=== PATIENT | female | born 1970 | race Caucasian/White ===

== ENCOUNTER 2016-08-28 16:17 | Emergency (ER) | payer OTHER ==
[~2016-08-28] VITALS: Wt 119.3 kg
[~2016-08-28 16:17] MED LIST: 'TENORMIN50 MG PO; ADVAIR 250/501 EA INH; ADVAIR 250/501 EA PO; ADVAIR 500/501 E1 INH; ALBUTEROL0.09 MG/A2 PO; ALDACTONE25 M1 PO; AUGMENTIN 875 M1 TAB PO; AUGMENTIN 875-875 MG PO; BACTRIM DS 8001 TA1 PO; CLARITIN-D 24 H1 TER PO; CLARITIN10 MG PO; FLUTICASON0.05 MG/AC NAS; KEFLEX500 M1 PO; KEFLEX500 MG PO; LASIX40 MG PO; LIPITOR10 MG PO; LISINOPRIL40 MG PO; METFORMIN1000 MG PO; METFORMIN500 MG PO; NORVASC5 MG PO; OMNICEF300 MG PO; PROVENTIL0.09 MG/AC IH; SINGULAIR10 M1 PO; SINGULAIR10 MG; SINGULAIR10 MG PO; THEOPHYLLINE E; THEOPHYLLINE E100 M1 PO; THEOPHYLLINE PO; TYLENOL500 MG; ULTRAM50 MG PO; VICODIN 5/500 505 MG PO; Vicodin 5/500 505 MG PO; ZOLOFT50 MG PO; ZYVOX600 MG PO
[2016-08-28] MEDS ORDERED: VIBRAMYCIN100 MG PO (17:17)
== END 2016-08-28 17:26 | disposition home or self-care (01) ==
LOC: ED 16:17
DX: J45.20 Mild intermittent asthma, uncomplicated (principal); Z88.6 Allergy status to analgesic agent; Z88.1 Allergy status to other antibiotic agents; Z88.7 Allergy status to serum and vaccine; Z79.899 Other long term (current) drug therapy

== ENCOUNTER 2016-12-15 22:00 | Emergency (ER) | payer OTHER ==
[~2016-12-15] VITALS: Ht 167.6 cm; Wt 121.1 kg
[~2016-12-15 22:00] MED LIST changes: +VIBRAMYCIN100 MG PO
[2016-12-15] MEDS ORDERED: ALBUTEROL2.5 MG/0.5 INH (22:15)
[2016-12-15] MEDS ORDERED: VENTOLIN H0.09 MG/AC INH (22:15)
[2016-12-15] MEDS ORDERED: QUESTRAN POWDE378 GM PO (22:16)
[2016-12-15] MEDS ORDERED: DUONEB 3 MG/3 ML3 M1 INH (22:17)
[2016-12-15] MEDS ORDERED: NUCALA100 MG IM (22:18)
[2016-12-15] MEDS ORDERED: TOPROL XL50 M1 PO (22:19)
[2016-12-15] MEDS ORDERED: KLOR-CON M2020 ME1 PO (22:20)
[2016-12-15] MEDS ORDERED: CEFADROXIL500 M1 PO (22:28)
== END 2016-12-15 22:33 | disposition home or self-care (01) ==
LOC: ED 22:00
DX: L03.116 Cellulitis of left lower limb (principal); Z90.49 Acquired absence of other specified parts of digestive tract; Z88.6 Allergy status to analgesic agent; Z88.1 Allergy status to other antibiotic agents; Z88.7 Allergy status to serum and vaccine; Z88.8 Allergy status to other drugs, medicaments and biological substances; Z79.899 Other long term (current) drug therapy

== ENCOUNTER → 2017-02-04 | Outpatient (CLI) | payer OTHER ==
[~2017-02-04] MED LIST changes: +ALBUTEROL2.5 MG/0.5 INH; +CEFADROXIL500 M1 PO; +DUONEB 3 MG/3 ML3 M1 INH; +KLOR-CON M2020 ME1 PO; +NUCALA100 MG IM; +QUESTRAN POWDE378 GM PO; +TOPROL XL50 M1 PO; +VENTOLIN H0.09 MG/AC INH
== END | disposition home or self-care (01) ==
LOC: RESCLI 03:15
DX: E11.9 Type 2 diabetes mellitus without complications (principal); F41.9 Anxiety disorder, unspecified; F32.9 Major depressive disorder, single episode, unspecified; J45.30 Mild persistent asthma, uncomplicated; I10 Essential (primary) hypertension; K76.89 Other specified diseases of liver; K80.50 Calculus of bile duct without cholangitis or cholecystitis without obstruction; R60.0 Localized edema; K75.81 Nonalcoholic steatohepatitis (NASH); G43.009 Migraine without aura, not intractable, without status migrainosus

== ENCOUNTER 2017-02-14 20:53 | Emergency (ER) | payer OTHER ==
[~2017-02-14] VITALS: Ht 167.6 cm; Wt 117.0 kg
[2017-02-14] MEDS ORDERED: PREDNISONE10 MG PO (21:16)
[2017-02-14] MEDS ORDERED: AUGMENTIN 875875 MG PO (21:16)
== END 2017-02-14 22:06 | disposition home or self-care (01) ==
LOC: ED 20:53
DX: J01.10 Acute frontal sinusitis, unspecified (principal); I10 Essential (primary) hypertension; E11.9 Type 2 diabetes mellitus without complications; G43.909 Migraine, unspecified, not intractable, without status migrainosus; J45.909 Unspecified asthma, uncomplicated; K21.9 Gastro-esophageal reflux disease without esophagitis; Z88.6 Allergy status to analgesic agent; Z88.1 Allergy status to other antibiotic agents; Z88.7 Allergy status to serum and vaccine; Z79.899 Other long term (current) drug therapy

== ENCOUNTER → 2017-03-19 | Outpatient (CLI) | payer OTHER ==
[~2017-03-19] MED LIST changes: +AUGMENTIN 875875 MG PO; +PREDNISONE10 MG PO
== END | disposition home or self-care (01) ==
LOC: RESCLI 03:31
DX: K75.81 Nonalcoholic steatohepatitis (NASH) (principal); E11.9 Type 2 diabetes mellitus without complications; F32.9 Major depressive disorder, single episode, unspecified; K80.50 Calculus of bile duct without cholangitis or cholecystitis without obstruction; G43.009 Migraine without aura, not intractable, without status migrainosus; J45.30 Mild persistent asthma, uncomplicated; F41.9 Anxiety disorder, unspecified; I10 Essential (primary) hypertension; K76.89 Other specified diseases of liver; E78.2 Mixed hyperlipidemia

== ENCOUNTER 2017-05-09 18:31 | Emergency (ER) | payer MEDICAID ==
[~2017-05-09] VITALS: Wt 117.9 kg
[2017-05-09] MEDS ORDERED: KEFLEX500 M1 PO (20:02)
[2017-05-09] MEDS ORDERED: NORCO 5-325 TA1 EACH PO (20:02)
== END 2017-05-09 19:48 | disposition home or self-care (01) ==
LOC: ED 18:31
DX: S92.402A Displaced unspecified fracture of left great toe, initial encounter for closed fracture (principal); R03.0 Elevated blood-pressure reading, without diagnosis of hypertension; Z88.6 Allergy status to analgesic agent; Z88.8 Allergy status to other drugs, medicaments and biological substances; Z88.1 Allergy status to other antibiotic agents; Z79.84 Long term (current) use of oral hypoglycemic drugs; Z79.899 Other long term (current) drug therapy; W20.8XXA Other cause of strike by thrown, projected or falling object, initial encounter; Y93.89 Activity, other specified; Y92.89 Other specified places as the place of occurrence of the external cause; Y99.8 Other external cause status

== ENCOUNTER → 2017-05-27 | Outpatient (CLI) | payer MEDICAID ==
[~2017-05-27] MED LIST changes: +NORCO 5-325 TA1 EACH PO
[2017-05-27 11:30] LABS: BASO # 0.1 10*3/uL (0.0-0.1); BASO % 0.8 % (0.0-1.0); EOS # 0.2 10*3/uL (0.0-0.4); EOS % 1.9 % (1.0-4.0); HEMATOCRIT 41.2 % (37.0-47.0); LYMPH # 3.3 10*3/uL (1.3-4.4); MEAN CELL VOLUME 91.8 fl (81.0-99.0); MEAN CORPUSCULAR HGB 31.2 pg (27.0-31.0); MEAN PLATELET VOLUME 9.4 fl (9.6-12.3); MONO # 0.5 10*3/uL (0.1-1.0); MONO % 4.3 % (3.0-9.0); NEUT # 7.6 10*3/uL (2.3-7.9); NEUT % 64.4 % (47.0-73.0); PLATELET COUNT AUTOMATED 331 10*3/uL (130-400); RED BLOOD COUNT 4.49 10*6/uL (4.10-5.10); RED CELL DISTRI WIDTH 12.1 % (0-14.5); WHITE BLOOD COUNT 11.7 10*3/uL (4.8-10.8)
[2017-05-27 11:45] LABS: CHLORIDE 106 mmol/L (98-107); POTASSIUM 3.9 mmol/L (3.5-5.1); SODIUM 140 mmol/L (136-145)
[2017-05-27 11:50] LABS: BUN 17 mg/dl (7-24); CREATININE 0.77 mg/dL (0.55-1.02); PHOSPHOROUS 1.9 mg/dL (2.5-4.9)
== END | disposition home or self-care (01) ==
LOC: LAB 03:37 → RESCLI 03:37
PROVIDERS: Internal Medicine
DX: J45.30 Mild persistent asthma, uncomplicated (principal); E83.42 Hypomagnesemia

== ENCOUNTER 2017-07-08 09:02 | Emergency (ER) | payer OTHER ==
[~2017-07-08] VITALS: Ht 167.6 cm; Wt 117.9 kg
[2017-07-08] MEDS ORDERED: DELTASONE20 M1 PO (10:21)
[2017-07-08] MEDS ORDERED: AMOXICILLIN500 M2 PO (10:21)
== END 2017-07-08 11:01 | disposition home or self-care (01) ==
LOC: ED 09:02
DX: J06.9 Acute upper respiratory infection, unspecified (principal); J45.909 Unspecified asthma, uncomplicated; Z88.6 Allergy status to analgesic agent; Z88.1 Allergy status to other antibiotic agents; Z88.7 Allergy status to serum and vaccine; Z79.899 Other long term (current) drug therapy

== ENCOUNTER 2017-07-16 10:13 | Inpatient (IN) | payer OTHER ==
[~2017-07-16] VITALS: Ht 167.6 cm; Wt 117.5 kg
[~2017-07-16 10:13] MED LIST changes: +AMOXICILLIN500 M2 PO; +DELTASONE20 M1 PO
[2017-07-16 10:58] VITALS: BP 130/78
[2017-07-16 11:19] LABS: HEMATOCRIT 45.3 % (37.0-47.0); HEMOGLOBIN 15.3 g/dl (12.0-16.0); MEAN CELL VOLUME 89.5 fl (81.0-99.0); MEAN CORPUSCULAR HGB 30.2 pg (27.0-31.0); MEAN CORPUSCULAR HGB CONC 33.8 g/dl (33.0-37.0); PLATELET COUNT AUTOMATED 334 10*3/uL (130-400); RED BLOOD COUNT 5.06 10*6/uL (4.10-5.10); RED CELL DISTRI WIDTH 12.7 % (0-14.5); WHITE BLOOD COUNT 30.3 10*3/uL (4.8-10.8)
[2017-07-16 11:36] LABS: ALBUMIN 3.7 gm/dl (3.1-4.5); ALKALINE PHOSPHATASE 72 U/L (45-117); BUN 22 mg/dl (7-24); CHLORIDE 111 mmol/L (98-107); CREATININE 0.89 mg/dL (0.55-1.02); LIPASE 117 U/L (73-393); POTASSIUM 3.9 mmol/L (3.5-5.1); SGOT/AST 14 IU/L (3-35); SGPT/ALT 29 U/L (12-78); SODIUM 141 mmol/L (136-145); TOTAL CELLS COUNTED 100 #CELLS; TOTAL PROTEIN 7.7 gm/dL (6.4-8.2)
[2017-07-16 11:37] LABS: PLATELET SUFFICIENCY NORMAL (NORMAL)
[2017-07-16 12:38] VITALS: BP 114/70
[2017-07-16 12:38] LABS: BILIRUBIN NEGATIVE (NEGATIVE); BLOOD NEGATIVE (NEGATIVE); CLARITY SL CLOUDY (CLEAR); COLOR YELLOW (YELLOW); GLUCOSE NEGATIVE (NEGATIVE); KETONE NEGATIVE (NEGATIVE); LEUKO ESTERASE NEGATIVE (NEGATIVE); NITRITE NEGATIVE (NEGATIVE); PH 5.5 (5.0-9.0); SPECIFIC GRAVITY 1.015 (1.005-1.030); UROBILINOGEN 0.2 E.U./dl (0.2-1.0)
[2017-07-16 13:00] LABS: BACTERIA 1+
[2017-07-16] MEDS ORDERED: LEVAQUIN750 M1 PO (14:27)
[2017-07-16 14:48] VITALS: BP 121/84
[2017-07-16 14:55] VITALS: BP 120/84
[2017-07-16] MEDS ORDERED: LIDEX 0.05% CRE15 GM T (15:51)
[2017-07-16 16:00] VITALS: BP 118/72
[2017-07-16] MEDS ORDERED: NUCALA100 MG SQ (16:04)
[2017-07-16 20:00] VITALS: BP 107/61
[2017-07-17] VITALS: BP 115/67
[2017-07-17 06:39] LABS: BASO # 0.1 10*3/uL (0.0-0.1); BASO % 0.4 % (0.0-1.0); EOS # 1.1 10*3/uL (0.0-0.4); EOS % 9.5 % (1.0-4.0); LYMPH # 2.8 10*3/uL (1.3-4.4); LYMPH % 25.3 % (27.0-41.0); MEAN CORPUSCULAR HGB 29.9 pg (27.0-31.0); MEAN CORPUSCULAR HGB CONC 32.5 g/dl (33.0-37.0); MEAN PLATELET VOLUME 9.2 fl (9.6-12.3); MONO # 0.8 10*3/uL (0.1-1.0); MONO % 6.9 % (3.0-9.0); NEUT # 6.3 10*3/uL (2.3-7.9); NEUT % 56.4 % (47.0-73.0); RED BLOOD COUNT 4.12 10*6/uL (4.10-5.10); WHITE BLOOD COUNT 11.2 10*3/uL (4.8-10.8)
[2017-07-17 06:42] LABS: HEMATOCRIT 37.9 % (37.0-47.0); HEMOGLOBIN 12.3 g/dl (12.0-16.0); PLATELET COUNT AUTOMATED 216 10*3/uL (130-400)
[2017-07-17 06:57] LABS: ALBUMIN 2.9 gm/dl (3.1-4.5); BUN 14 mg/dl (7-24); CHLORIDE 111 mmol/L (98-107); FREE T4 0.99 ng/dl (0.76-1.46); POTASSIUM 3.3 mmol/L (3.5-5.1); SODIUM 141 mmol/L (136-145)
[2017-07-17 06:58] LABS: ACT PARTIAL THROMBO TIME 22.7 SECONDS (20.8-31.5)
[2017-07-17 07:07] LABS: ALKALINE PHOSPHATASE 57 U/L (45-117); CHOLESTEROL 139 mg/dL (<200); CREATININE 0.67 mg/dL (0.55-1.02); HDL CHOLESTEROL 35 mg/dl (40-60); LDL CHOLESTEROL 79 mg/dL (9-159); PHOSPHOROUS 2.5 mg/dL (2.5-4.9); SGOT/AST 12 IU/L (3-35); SGPT/ALT 23 U/L (12-78); THYROID STIM HORMONE (HS) 0.989 uIU/ml (0.358-4.75); TOTAL PROTEIN 6.2 gm/dL (6.4-8.2); TRIGLYCERIDES 127 mg/dl (<150); VLDL CHOLESTEROL 25 mg/dL (6-40)
[2017-07-17 08:00] VITALS: BP 110/64
[2017-07-17 08:34] LABS: VITAMIN D, 25-HYDROXY 12.3 ng/mL (30-100)
[2017-07-17 12:00] VITALS: BP 114/76
[2017-07-17 16:00] VITALS: BP 116/56
[2017-07-17 20:04] VITALS: BP 116/561
[2017-07-17 23:57] VITALS: BP 106/62
[2017-07-18 05:49] LABS: BASO % 0.5 % (0.0-1.0); EOS # 0.7 10*3/uL (0.0-0.4); EOS % 9.5 % (1.0-4.0); HEMATOCRIT 34.9 % (37.0-47.0); HEMOGLOBIN 11.3 g/dl (12.0-16.0); LYMPH # 1.9 10*3/uL (1.3-4.4); LYMPH % 25.6 % (27.0-41.0); MEAN CELL VOLUME 93.3 fl (81.0-99.0); MEAN CORPUSCULAR HGB 30.2 pg (27.0-31.0); MEAN CORPUSCULAR HGB CONC 32.4 g/dl (33.0-37.0); MEAN PLATELET VOLUME 9.4 fl (9.6-12.3); MONO # 0.6 10*3/uL (0.1-1.0); MONO % 7.5 % (3.0-9.0); NEUT # 4.1 10*3/uL (2.3-7.9); NEUT % 56.1 % (47.0-73.0); PLATELET COUNT AUTOMATED 171 10*3/uL (130-400); RED BLOOD COUNT 3.74 10*6/uL (4.10-5.10); RED CELL DISTRI WIDTH 12.8 % (0-14.5); WHITE BLOOD COUNT 7.4 10*3/uL (4.8-10.8)
[2017-07-18 06:04] LABS: ALBUMIN 2.7 gm/dl (3.1-4.5); ALKALINE PHOSPHATASE 50 U/L (45-117); BUN 6 mg/dl (7-24); CHLORIDE 113 mmol/L (98-107); CREATININE 0.57 mg/dL (0.55-1.02); POTASSIUM 3.7 mmol/L (3.5-5.1); SGOT/AST 12 IU/L (3-35); SGPT/ALT 24 U/L (12-78); SODIUM 145 mmol/L (136-145); TOTAL PROTEIN 5.6 gm/dL (6.4-8.2)
[2017-07-18 08:00] VITALS: BP 118/74
[2017-07-18] MEDS ORDERED: ZONISAMIDE100 MG PO (11:06)
[2017-07-18] MEDS ORDERED: ZOLOFT50 MG PO (11:18)
[2017-07-18] MEDS ORDERED: IMITREX100 MG PO (11:25)
[2017-07-18 12:00] VITALS: BP 116/70
[2017-07-18 14:00] VITALS: BP 116/70
[2017-07-18 16:00] VITALS: BP 143/85
[2017-07-18 20:00] VITALS: BP 139/75
[2017-07-19] VITALS: BP 131/70
[2017-07-19 06:17] LABS: BASO % 0.4 % (0.0-1.0); EOS # 0.5 10*3/uL (0.0-0.4); EOS % 6.4 % (1.0-4.0); HEMATOCRIT 36.2 % (37.0-47.0); HEMOGLOBIN 11.9 g/dl (12.0-16.0); LYMPH # 1.3 10*3/uL (1.3-4.4); MEAN CORPUSCULAR HGB 29.9 pg (27.0-31.0); MEAN CORPUSCULAR HGB CONC 32.9 g/dl (33.0-37.0); MEAN PLATELET VOLUME 9.3 fl (9.6-12.3); MONO # 0.6 10*3/uL (0.1-1.0); MONO % 7.5 % (3.0-9.0); NEUT # 5.9 10*3/uL (2.3-7.9); NEUT % 69.9 % (47.0-73.0); PLATELET COUNT AUTOMATED 182 10*3/uL (130-400); RED BLOOD COUNT 3.98 10*6/uL (4.10-5.10); RED CELL DISTRI WIDTH 12.7 % (0-14.5); WHITE BLOOD COUNT 8.4 10*3/uL (4.8-10.8)
[2017-07-19 06:30] LABS: ALBUMIN 2.9 gm/dl (3.1-4.5); ALKALINE PHOSPHATASE 55 U/L (45-117); BUN 5 mg/dl (7-24); CHLORIDE 114 mmol/L (98-107); CREATININE 0.62 mg/dL (0.55-1.02); POTASSIUM 3.1 mmol/L (3.5-5.1); SGOT/AST 15 IU/L (3-35); SGPT/ALT 25 U/L (12-78); SODIUM 146 mmol/L (136-145); TOTAL PROTEIN 5.8 gm/dL (6.4-8.2)
[2017-07-19 08:00] VITALS: BP 140/80
[2017-07-19 12:04] VITALS: BP 107/55
[2017-07-19 16:00] VITALS: BP 135/75
[2017-07-19 20:00] VITALS: BP 137/65
[2017-07-20] VITALS: BP 124/53
[2017-07-20 06:55] LABS: BASO % 0.5 % (0.0-1.0); EOS # 0.5 10*3/uL (0.0-0.4); EOS % 7.6 % (1.0-4.0); HEMATOCRIT 35.9 % (37.0-47.0); HEMOGLOBIN 11.7 g/dl (12.0-16.0); LYMPH # 1.5 10*3/uL (1.3-4.4); LYMPH % 23.5 % (27.0-41.0); MEAN CELL VOLUME 92.3 fl (81.0-99.0); MEAN CORPUSCULAR HGB 30.1 pg (27.0-31.0); MEAN CORPUSCULAR HGB CONC 32.6 g/dl (33.0-37.0); MEAN PLATELET VOLUME 9.5 fl (9.6-12.3); MONO # 0.5 10*3/uL (0.1-1.0); MONO % 7.5 % (3.0-9.0); NEUT # 3.7 10*3/uL (2.3-7.9); NEUT % 60.1 % (47.0-73.0); PLATELET COUNT AUTOMATED 170 10*3/uL (130-400); RED BLOOD COUNT 3.89 10*6/uL (4.10-5.10); RED CELL DISTRI WIDTH 13.1 % (0-14.5); WHITE BLOOD COUNT 6.2 10*3/uL (4.8-10.8)
[2017-07-20 07:34] LABS: CHLORIDE 110 mmol/L (98-107); POTASSIUM 2.9 mmol/L (3.5-5.1); SODIUM 144 mmol/L (136-145)
[2017-07-20 08:00] VITALS: BP 150/86
[2017-07-20 08:01] LABS: ALBUMIN 2.9 gm/dl (3.1-4.5); ALKALINE PHOSPHATASE 59 U/L (45-117); BUN 6 mg/dl (7-24); CREATININE 0.71 mg/dL (0.55-1.02); SGOT/AST 21 IU/L (3-35); SGPT/ALT 30 U/L (12-78); TOTAL PROTEIN 6.1 gm/dL (6.4-8.2)
[2017-07-20 12:00] VITALS: BP 142/75
[2017-07-20] MEDS ORDERED: PHENERGAN25 M3 PO (13:03)
[2017-07-20] MEDS ORDERED: METRONIDAZOLE500 M1 PO (13:03)
== END 2017-07-20 14:21 | disposition home or self-care (01) | DRG 872 ==
LOC: ED 10:13 → 4E 13:56 → EDHOLD 13:56 → 4E 14:06
PROVIDERS: Family Medicine; Internal Medicine; Nurse Practitioner Family
DX: A41.9 Sepsis, unspecified organism (principal); E11.8 Type 2 diabetes mellitus with unspecified complications; E44.0 Moderate protein-calorie malnutrition; K76.0 Fatty (change of) liver, not elsewhere classified; E66.01 Morbid (severe) obesity due to excess calories; Z68.41 Body mass index [BMI] 40.0-44.9, adult; E87.6 Hypokalemia; K21.9 Gastro-esophageal reflux disease without esophagitis; F41.9 Anxiety disorder, unspecified; A08.4 Viral intestinal infection, unspecified; F32.9 Major depressive disorder, single episode, unspecified; J45.909 Unspecified asthma, uncomplicated; G43.809 Other migraine, not intractable, without status migrainosus; Z90.13 Acquired absence of bilateral breasts and nipples; Z88.7 Allergy status to serum and vaccine; Z88.4 Allergy status to anesthetic agent; Z88.5 Allergy status to narcotic agent; Z88.1 Allergy status to other antibiotic agents; Z90.49 Acquired absence of other specified parts of digestive tract; Z82.49 Family history of ischemic heart disease and other diseases of the circulatory system; Z79.899 Other long term (current) drug therapy; Z79.4 Long term (current) use of insulin

== ENCOUNTER → 2017-08-18 | Outpatient (CLI) | payer OTHER ==
[~2017-08-18] MED LIST changes: +IMITREX100 MG PO; +LEVAQUIN750 M1 PO; +LIDEX 0.05% CRE15 GM T; +METRONIDAZOLE500 M1 PO; +NUCALA100 MG SQ; +PHENERGAN25 M3 PO; +ZONISAMIDE100 MG PO
== END | disposition home or self-care (01) ==
LOC: RESCLI 02:58
DX: I85.00 Esophageal varices without bleeding (principal); I10 Essential (primary) hypertension; K75.81 Nonalcoholic steatohepatitis (NASH); F32.9 Major depressive disorder, single episode, unspecified; R14.0 Abdominal distension (gaseous); E11.9 Type 2 diabetes mellitus without complications; G43.009 Migraine without aura, not intractable, without status migrainosus; J18.9 Pneumonia, unspecified organism

== ENCOUNTER → 2017-09-30 | Outpatient (CLI) | payer OTHER ==
[~2017-09-30] MED LIST changes: +DOXYCYCLINE100 M3 PO; +PREDNISONE50 MG PO
== END | disposition home or self-care (01) ==
LOC: RESCLI 08:19
DX: I10 Essential (primary) hypertension (principal); E78.2 Mixed hyperlipidemia; J45.30 Mild persistent asthma, uncomplicated; F32.9 Major depressive disorder, single episode, unspecified; R14.0 Abdominal distension (gaseous); E11.9 Type 2 diabetes mellitus without complications; K75.81 Nonalcoholic steatohepatitis (NASH); R60.0 Localized edema; E66.01 Morbid (severe) obesity due to excess calories; J18.9 Pneumonia, unspecified organism; Z90.49 Acquired absence of other specified parts of digestive tract

== ENCOUNTER 2017-10-06 20:49 | Emergency (ER) | payer OTHER ==
[~2017-10-06] VITALS: Ht 167.6 cm; Wt 114.3 kg
[~2017-10-06 20:49] MED LIST changes: -DOXYCYCLINE100 M3 PO; -PREDNISONE50 MG PO
[2017-10-06 21:04] LABS: BASO # 0.1 10*3/uL (0.0-0.1); BASO % 0.5 % (0.0-1.0); EOS # 0.3 10*3/uL (0.0-0.4); EOS % 1.9 % (1.0-4.0); HEMATOCRIT 42.4 % (37.0-47.0); HEMOGLOBIN 14.3 g/dl (12.0-16.0); LYMPH # 3.8 10*3/uL (1.3-4.4); MEAN CORPUSCULAR HGB 30.7 pg (27.0-31.0); MEAN CORPUSCULAR HGB CONC 33.7 g/dl (33.0-37.0); MEAN PLATELET VOLUME 9.5 fl (9.6-12.3); MONO # 0.9 10*3/uL (0.1-1.0); NEUT # 9.8 10*3/uL (2.3-7.9); PLATELET COUNT AUTOMATED 279 10*3/uL (130-400); RED BLOOD COUNT 4.66 10*6/uL (4.10-5.10); RED CELL DISTRI WIDTH 13.8 % (0-14.5)
[2017-10-06 21:20] LABS: ALBUMIN 3.8 gm/dl (3.1-4.5); ALKALINE PHOSPHATASE 80 U/L (45-117); BUN 14 mg/dl (7-24); CHLORIDE 106 mmol/L (98-107); POTASSIUM 3.4 mmol/L (3.5-5.1); SGOT/AST 19 IU/L (3-35); SGPT/ALT 31 U/L (12-78); SODIUM 140 mmol/L (136-145); TOTAL PROTEIN 7.9 gm/dL (6.4-8.2)
[2017-10-06 21:23] LABS: BETA-HCG, QUANT < 1.0 mIU/mL (1-3); TROPONIN I < 0.015 ng/ml (<0.045)
[2017-10-06] MEDS ORDERED: DOXYCYCLINE100 M3 PO (21:32)
[2017-10-06] MEDS ORDERED: PREDNISONE50 MG PO (21:32)
== END 2017-10-06 21:32 | disposition home or self-care (01) ==
LOC: ED 20:49
PROVIDERS: Student in an Organized Health Care Education/Training Program
DX: J40 Bronchitis, not specified as acute or chronic (principal); L03.116 Cellulitis of left lower limb; J32.9 Chronic sinusitis, unspecified; E11.9 Type 2 diabetes mellitus without complications; K21.9 Gastro-esophageal reflux disease without esophagitis; I10 Essential (primary) hypertension; J45.909 Unspecified asthma, uncomplicated; Z88.6 Allergy status to analgesic agent; Z88.7 Allergy status to serum and vaccine; Z88.1 Allergy status to other antibiotic agents; Z79.899 Other long term (current) drug therapy

== ENCOUNTER 2017-12-20 18:04 | Emergency (ER) | payer OTHER ==
[~2017-12-20] VITALS: Ht 167.6 cm; Wt 116.1 kg
[~2017-12-20 18:04] MED LIST changes: +DOXYCYCLINE100 M3 PO; +PREDNISONE50 MG PO
[2017-12-25] MEDS ORDERED: SPIRONOLACTONE100 MG PO (13:30)
[2017-12-25] MEDS ORDERED: FUROSEMIDE40 MG PO (13:30)
[2017-12-25] MEDS ORDERED: METOPROLOL SUCC50 M1 PO (13:30)
[2017-12-25] MEDS ORDERED: LISINOPRIL20 MG PO (13:30)
[2017-12-25] MEDS ORDERED: SUMATRIPTAN SU100 M1 PO (13:31)
[2017-12-25] MEDS ORDERED: POTASSIUM CHLO20 ME4 PO (13:31)
[2017-12-25] MEDS ORDERED: PROAIR HFA8.5 GM INH (13:32)
[2017-12-25] MEDS ORDERED: CHOLESTYRAMINE P4 GM PO (13:32)
[2017-12-25] MEDS ORDERED: GOOD SENSE ALLE10 M2 PO (13:32)
[2017-12-25] MEDS ORDERED: SERTRALINE HYD100 MG PO (13:33)
[2017-12-25] MEDS ORDERED: MONTELUKAST SOD10 MG PO (13:33)
[2017-12-25] MEDS ORDERED: Ipratropium Brom3 ML INH (13:33)
[2017-12-25] MEDS ORDERED: METFORMIN HYD1000 MG PO (13:33)
[2017-12-25] MEDS ORDERED: ZYPREXA2.5 MG PO (20:15)
== END 2017-12-20 20:05 | disposition home or self-care (01) ==
LOC: ED 18:04
DX: G43.909 Migraine, unspecified, not intractable, without status migrainosus (principal); J45.909 Unspecified asthma, uncomplicated; I10 Essential (primary) hypertension; K21.9 Gastro-esophageal reflux disease without esophagitis; E66.01 Morbid (severe) obesity due to excess calories; E11.9 Type 2 diabetes mellitus without complications; Z90.49 Acquired absence of other specified parts of digestive tract; Z98.890 Other specified postprocedural states; Z79.899 Other long term (current) drug therapy; Z88.6 Allergy status to analgesic agent; Z88.5 Allergy status to narcotic agent; Z88.8 Allergy status to other drugs, medicaments and biological substances; Z88.7 Allergy status to serum and vaccine

== ENCOUNTER 2020-01-25 19:09 | Emergency (ER) | payer OTHER ==
[~2020-01-25] VITALS: Ht 167.6 cm; Wt 121.1 kg
[~2020-01-25 19:09] MED LIST changes: +CHOLESTYRAMINE P4 GM PO; +FUROSEMIDE40 MG PO; +GOOD SENSE ALLE10 M2 PO; +Ipratropium Brom3 ML INH; +LISINOPRIL20 MG PO; +METFORMIN HYD1000 MG PO; +METOPROLOL SUCC50 M1 PO; +MONTELUKAST SOD10 MG PO; +POTASSIUM CHLO20 ME4 PO; +PROAIR HFA8.5 GM INH; +SERTRALINE HYD100 MG PO; +SPIRONOLACTONE100 MG PO; +SUMATRIPTAN SU100 M1 PO; +ZYPREXA2.5 MG PO
== END 2020-01-25 19:42 | disposition home or self-care (01) ==
LOC: ED 19:09
DX: K08.89 Other specified disorders of teeth and supporting structures (principal); J45.909 Unspecified asthma, uncomplicated; I10 Essential (primary) hypertension; F32.9 Major depressive disorder, single episode, unspecified; F41.9 Anxiety disorder, unspecified; Z88.5 Allergy status to narcotic agent; Z88.8 Allergy status to other drugs, medicaments and biological substances; Z79.899 Other long term (current) drug therapy

== ENCOUNTER 2024-08-28 10:28 | Emergency (ER) | payer BC ==
[~2024-08-28] VITALS: Ht 167.6 cm; Wt 108.9 kg
[2024-08-28] MEDS ORDERED: MORPHINE Sulfate 2 MG/ML SYR IV ONE (11:45)
[2024-08-28] MEDS ORDERED: SODIUM CHLORIDE 0.9% 1,000 ML IV ONE (11:45)
[2024-08-28] MEDS ORDERED: Ondansetron Hydrochloride 4 MG/2 ML VIAL IV ONE (11:45)
[2024-08-28] MEDS ORDERED: IOHEXOL 300 MG/ML 100 ML VIAL IV ONE (11:50)
[2024-08-28 12:07] LABS: BASO # 0.1 10*3/uL (0.0-0.1); BASO % 0.7 % (0.0-1.0); EOS # 0.2 10*3/uL (0.0-0.4); EOS % 1.1 % (1.0-4.0); HEMATOCRIT 47.3 % (37.0-47.0); MEAN CELL VOLUME 89.2 fl (81.0-99.0); MEAN CORPUSCULAR HGB 29.8 pg (27.0-31.0); MEAN CORPUSCULAR HGB CONC 33.4 g/dl (33.0-37.0); MEAN PLATELET VOLUME 9.1 fl (9.6-12.3); MONO # 0.9 10*3/uL (0.1-1.0); MONO % 5.5 % (3.0-9.0); NEUT # 12.7 10*3/uL (2.3-7.9); PLATELET COUNT AUTOMATED 294 10*3/uL (130-400); RED CELL DISTRI WIDTH 13.1 % (0-14.5); WHITE BLOOD COUNT 16.8 10*3/uL (4.8-10.8)
[2024-08-28 12:27] LABS: TOTAL PROTEIN 7.3 gm/dL (6.0-8.0)
[2024-08-28] MEDS ORDERED: SODIUM CHLORIDE 0.9% 1,000 ML IV SCH (12:50)
[2024-08-28] MEDS ORDERED: Vancomycin Hydrochloride 250 ML IV ONE (12:50)
[2024-08-28] MEDS ORDERED: Piperacillin Sodium/Tazobact 50 ML IV ONE (12:50)
[2024-08-28 12:59] LABS: BILIRUBIN Negative (Negative); BLOOD Trace-Lysed (Negative); CLARITY Clear (Clear); COLOR Yellow (Yellow); GLUCOSE 2+ (Negative); KETONE Trace (Negative); LEUKO ESTERASE Trace (Negative); NITRITE Negative (Negative); PH 5.5 (4.5-8.0); SPECIFIC GRAVITY >= 1.030 (1.001-1.030)
[2024-08-28 13:13] LABS: BACTERIA 2+
[2024-08-28 13:14] LABS: YEAST TRACE
[2024-08-28] MEDS ORDERED: diphenhydrAMINE hydrochloride 50 MG/ML VIAL IV ONE (14:35)
[2024-08-28] MEDS ORDERED: fentaNYL CITRATE 100 MCG/2 ML VIAL IV ONE (15:15)
== END 2024-08-28 16:38 | disposition short-term general hospital (02) ==
LOC: ED 10:28
PROVIDERS: Physician Assistant Medical
DX: A41.9 Sepsis, unspecified organism (principal); R65.20 Severe sepsis without septic shock; N83.202 Unspecified ovarian cyst, left side; N83.201 Unspecified ovarian cyst, right side; N39.0 Urinary tract infection, site not specified; E66.9 Obesity, unspecified; F41.9 Anxiety disorder, unspecified; F32.A Depression, unspecified; J45.909 Unspecified asthma, uncomplicated; E11.9 Type 2 diabetes mellitus without complications; I10 Essential (primary) hypertension; K21.9 Gastro-esophageal reflux disease without esophagitis; G43.909 Migraine, unspecified, not intractable, without status migrainosus; Z88.6 Allergy status to analgesic agent; Z88.1 Allergy status to other antibiotic agents; Z88.7 Allergy status to serum and vaccine; Z79.899 Other long term (current) drug therapy; Z98.890 Other specified postprocedural states; Z90.49 Acquired absence of other specified parts of digestive tract; Z68.30 Body mass index [BMI] 30.0-30.9, adult; Z87.42 Personal history of other diseases of the female genital tract